=== PATIENT | male | born 1965 | race Caucasian/White ===

== ENCOUNTER → 2021-02-06 10:31 | Outpatient (CLI) | payer BC, SELFPAY ==
--- NOTE | 2021-02-06 10:40 | XR_ITS ---
PROCEDURE: XR FOOT WT BEARING RT 3V CLINICAL INDICATION: pain COMPARISON: No exams were available for comparison FINDINGS: No fracture or dislocation. No lytic or blastic change. There is normal mineralization. The joint spaces are well-preserved. No significant degenerative/arthritic changes. No erosive changes evident. Other findings:Mild hypertrophic changes of the distal aspect of the 1st metatarsal. Borderline pes planus IMPRESSION: Hypertrophic change distal aspect of 1st metatarsal . Borderline pes planus Dictated by: Danny Jordan MD 02/06/2021 15:54 Danny Jordan MD in [facility] 02/06/2021 15:54
--- NOTE | 2021-02-06 10:40 | XR_ITS ---
PROCEDURE: XR FOOT WT BEARING LT 3V CLINICAL INDICATION: Pain COMPARISON: No exams were available for comparison FINDINGS: No fracture or dislocation. No lytic or blastic change. There is normal mineralization. The joint spaces are well-preserved. No significant degenerative/arthritic changes. No erosive changes evident. Other findings:Borderline pes planus. IMPRESSION: Borderline pes planus otherwise negative Dictated by: Danny Jordan MD 02/06/2021 15:53 Danny Jordan MD in [facility] 02/06/2021 15:53
== END ==
PROVIDERS: PCP Family Medicine; Visit Provider Podiatrist
DX: M79.672 Pain in left foot (principal); M79.671 Pain in right foot
CPT/HCPCS: 73630